=== PATIENT | male | born 1970 | race Hispanic/Latino ===

== ENCOUNTER 2017-08-21 11:18 | Emergency (ER) | payer BC ==
[~2017-08-21] VITALS: Ht 170.2 cm; Wt 81.0 kg
[~2017-08-21 11:18] MED LIST: CEPHALEXIN500 MG OR; NO MEDS; ULTRAM50 MG OR
[2017-08-21 11:46] LABS: INFLUENZA A NONE DETECTED (NONE DETECT); INFLUENZA B POSITIVE (NONE DETECT)
[2017-08-21] MEDS ORDERED: TAM75CAP PO (11:52)
[2017-08-21 12:01] VITALS: BP 121/77
== END 2017-08-21 12:10 | disposition home or self-care (01) | DRG 153 ==
LOC: ED 11:18
PROVIDERS: Emergency Medicine
DX: J11.1 Influenza due to unidentified influenza virus with other respiratory manifestations (principal)

== ENCOUNTER 2020-01-16 08:41 | Emergency (ER) | payer BC ==
[~2020-01-16] VITALS: Ht 170.2 cm; Wt 75.0 kg
[~2020-01-16 08:41] MED LIST changes: +TAM75CAP PO
[2020-01-16 09:39] LABS: HEMATOCRIT 41.8 % (39.0-50.0); HEMOGLOBIN 13.7 g/dl (14.0-18.0); IMMATURE GRANULOCYTES 0.3 % (0.0-5.0); MEAN CELL VOLUME 88.4 fL CALC (80.0-100.0); MEAN CORPUSCULAR HGB CONC 32.8 g/dL CAL (32.0-36.0); NEUT# 6.7 thou/uL (1.82-7.42); RED BLOOD COUNT 4.73 mill/uL (4.70-6.10); RED CELL DISTRI WIDTH 12.6 % (11.5-15.5)
[2020-01-16 09:57] LABS: ALBUMIN 4.1 g/dL (3.2-5.0); ALKALINE PHOSPHATASE 76 u/l (38-126); ANION GAP 10 (6-22 (CALC)); BILIRUBIN, TOTAL 0.7 mg/dL (0.0-1.4); BUN 17 mg/dL (9-20); BUN/CREATININE RATIO 23 (12-20 (CALC)); CARBON DIOXIDE 24 mmol/l (22-30); CHLORIDE 106 mmol/l (95-108); CREATININE 0.7 mg/dL (0.7-1.3); GFR > 60 ML/MIN (>=60 (CALC)); GFR FOR AFR.AMER. > 60 ML/MIN (>=60 (CALC)); LIPASE 61 u/l (23-300); POTASSIUM 3.6 mmol/l (3.5-5.1); SGOT/AST 40 u/l (17-59); SODIUM 136 mmol/l (137-146); TOTAL PROTEIN 7.1 g/dL (6.3-8.2)
[2020-01-16] MEDS ORDERED: BENADRYL25 M1 PO ×2 (10:38→10:39)
[2020-01-16 10:39] VITALS: BP 127/73
[2020-01-16] MEDS ORDERED: KEFLEX500 M1 PO ×2 (10:39)
== END 2020-01-16 10:40 | disposition home or self-care (01) | DRG 313 ==
LOC: ED 08:41
DX: R07.89 Other chest pain (principal); L30.9 Dermatitis, unspecified

== ENCOUNTER 2020-02-19 06:14 | Emergency (ER) | payer BC ==
[~2020-02-19] VITALS: Ht 170.2 cm; Wt 75.0 kg
[~2020-02-19 06:14] MED LIST changes: +BENADRYL25 M1 PO; +KEFLEX500 M1 PO
[2020-02-19 06:51] LABS: HEMATOCRIT 44.9 % (39.0-50.0); HEMOGLOBIN 14.2 g/dl (14.0-18.0); IMMATURE GRANULOCYTES 0.1 % (0.0-5.0); MEAN CORPUSCULAR HGB 28.5 pG CALC (26.0-32.0); MEAN CORPUSCULAR HGB CONC 31.6 g/dL CAL (32.0-36.0); NEUT# 4.09 thou/uL (1.82-7.42); RED BLOOD COUNT 4.99 mill/uL (4.70-6.10); RED CELL DISTRI WIDTH 12.4 % (11.5-15.5)
[2020-02-19 07:03] LABS: URINE BILIRUBIN - DIPSTICK NEGATIVE (NEGATIVE); URINE BLOOD DIPSTICK TRACE-INTACT (NEGATIVE); URINE COLOR YELLOW; URINE GLUCOSE - DIPSTICK NEGATIVE (NEGATIVE); URINE KETONE NEGATIVE (NEGATIVE); URINE LEUK ESTERASE NEGATIVE (NEGATIVE); URINE NITRITE - DIPSTICK NEGATIVE (Negative); URINE PROTEIN - DIPSTICK NEGATIVE (NEG-TRACE); URINE SPECIFIC GRAVITY >=1.030; URINE UROBILINOGEN - DIPSTICK 0.2 E.U./dL (0.2)
[2020-02-19 07:37] LABS: ALBUMIN 3.8 g/dL (3.2-5.0); ALKALINE PHOSPHATASE 67 u/l (38-126); ANION GAP 10 (6-22 (CALC)); BUN 17 mg/dL (9-20); BUN/CREATININE RATIO 18 (12-20 (CALC)); CARBON DIOXIDE 25 mmol/l (22-30); CHLORIDE 106 mmol/l (95-108); CREATININE 0.9 mg/dL (0.7-1.3); GFR > 60 ML/MIN (>=60 (CALC)); GFR FOR AFR.AMER. > 60 ML/MIN (>=60 (CALC)); POTASSIUM 3.9 mmol/l (3.5-5.1); SGOT/AST 24 u/l (17-59); SODIUM 137 mmol/l (137-146); TOTAL PROTEIN 6.9 g/dL (6.3-8.2)
[2020-02-19 07:40] LABS: BILIRUBIN, TOTAL 0.4 mg/dL (0.0-1.4)
[2020-02-19 07:50] LABS: ACT PARTIAL THROMBO TIME 25.2 SECONDS (20.0-32.5); PROTHROMBIN TIME 10.2 SECONDS (9.0-12.5)
[2020-02-19 08:14] VITALS: BP 138/74
== END 2020-02-19 08:22 | disposition home or self-care (01) | DRG 149 ==
LOC: ED 06:14
DX: R42 Dizziness and giddiness (principal); R00.1 Bradycardia, unspecified